=== PATIENT | female | born 1955 | race African-American/Black ===

== ENCOUNTER 2019-04-06 10:51 | Emergency (ER) | payer MEDICARE, OTHER ==
[~2019-04-06] VITALS: Ht 160 cm; Wt 86.6 kg
[~2019-04-06 10:51] MED LIST: CARVEDILOL25 MG PO; CYMBALTA60 MG PO; EXFORGE HCT 101 EAC2 PO; ULTRAM50 MG PO
--- OUTSIDE RECORDS SUMMARY | 2019-04-06 10:53 | XMS REPORT | Summary of Care ---
Author Author HAIDER Hardy, MARIAH Santos Unknown Address Unknown Phone Unavailable Care Team Providers Care Lap Hand Tool Name Role Phone HAIDER Hardy, MARIAH Unavailable Unavailable BRIANA LESLIE, ABRAM TREJO Unavailable Unavailable NORM LESLIE, MANJULA Unavailable Unavailable Caroline LESLIE, González Unavailable Unavailable Unavailable Unavailable Functional Status Name Dates Details Functional status health issues are not documented Status: Name Dates Details Cognitive status health issues are not documented Status: Problems Name Dates Details Seronegative rheumatoid arthritis (714.0, M06.00) Status: Active Elevated sed rate (790.1, R70.0) Status: Active Elevated C-reactive protein (790.95, R79.82) Status: Active Polyarthritis of multiple sites (716.59, M13.0) Status: Active Medications Name Dates Details Carvedilol 25 MG Oral Tablet TAKE 1 TABLET TWICE DAILY. Active traMADol HCl - 50 MG Oral Tablet TAKE 1 TABLET EVERY 8 HOURS NEEDED. * Refills: 0 Active Losartan Potassium-HCTZ 100-25 MG Oral Tablet * Refills: 0 Active Atorvastatin Calcium 40 MG Oral Tablet * Refills: 0 Active Iron 246 (28 Fe) MG TABS * Refills: 0 Active ProAir HFA AERS * Refills: 0 Active DULoxetine HCl - 60 MG Oral Capsule Delayed Release Particles * Refills: 0 Active tiZANidine HCl - 4 MG Oral Capsule TAKE 1 CAPSULE TWICE DAILY * Refills: 0 Active Aspirin 81 MG TABS * Refills: 0 Active traMADol-Acetaminophen 37.5-325 MG Oral Tablet * Refills: 0 Active predniSONE 10 MG Oral Tablet * Refills: 0 Active Montelukast Sodium 10 MG Oral Tablet * Refills: 0 Active Flonase Allergy Relief SUSP * Refills: 0 Active Allergies and Adverse Reactions Name Dates Details erythromycin (Allergy) Status: Active Procedures Procedure Dates Details [QLH] C-REACTIVE PROTEIN Date: 13-Mar-2019 [QLH] SED RATE BY MODIFIED WESTERGREN Date: 13-Mar-2019 [QL] PROTEIN, TOTAL AND PROTEIN ELECTROPHORESIS, URINE Date: 13-Mar-2019 [QL] IMMUNOFIXATION, SERUM Date: 13-Mar-2019 [QLH] RHEUMATOID FACTOR Date: 22-Mar-2019 [QH] CYCLIC CITRULLINATED PEPTIDE (CCP) AB (IGG) Date: 22-Mar-2019 Immunization Name Dates Details Immunizations not documented Social History Name Dates Details Unknown if ever smoked Vital Signs Date Test Result Details [id number] BP Systolic 136 mm[Hg] Status: Comments: Location: LUE; Position: Sitting BP Diastolic 87 mm[Hg] Status: Comments: Location: LUE; Position: Sitting Height 62 in Status: Weight 199.375 lb Status: Body Mass Index Calculated 36.47 kg/m2 Status: Body Surface Area Calculated 1.91 m2 Status: Heart Rate 73 /min Status: Comments: Location: L Carotid; Results Date Description Value Details [id number] XRAY Hand AP lateral oblique Bilateral 61749 Hand AP lateral oblique Bilateral SEE NOTES Comments: EXAM: XR BILATERAL HAND 4 VIEWSDATE: 03/13/2019 13:08 CDTINDICATION: - M13.0 Polyarthritis, unspecifiedCOMPARISON: NoneTECHNIQUE: PANellie, lateral and oblique radiographs of the bilateralhands.FINDINGS: Bone mineral density appears normal. Small osteophytes without jointspace narrowing or erosion scattered throughout the interphalangeal joints andmetacarpophalangeal joints. No joint space narr owing, erosions, or cysts of thewrists.Chondrocalcinosis of the right second MCP, bilateral third MCP, and rightradiocarpal joints.IMPRESSION: 1. Mild osteoarthrosis scattered throughout the interphalangeal andmetacarpophalangeal joints.2. Chondrocalcinosis of the bilateral MCP and right radiocarpal joints.--Read by: Diomedes Schwartz MDDictated Date/time: 03/13/19 13:29Electronically Signed by: Diomedes Schwartz MD 03/13/1913:31FINAL REPORT [id number] XRAY Foot 3 views Bilateral 75930 Foot 3 views Bilateral SEE NOTES Comments: EXAM: XR BILATERAL FOOT 3 VIEWSDATE: 03/13/2019 13:07 CDTINDICATION: M13.0 Polyarthritis, unspecifiedCOMPARISON: None.TECHNIQUE: AP, lateral and oblique radiographs of the bilateral feetF INDINGS: No acute fracture or malalignment is identified.No soft tissue abnormality is identified.IMPRESSION: No acute abnormality.--This report was dictated by a Early Childhood Lead Teacher/Fellow/Physician Wash Driller. Hilda personallyreviewed the images as well as the interpretation and agree with the findings.Read by: Juana Nicholas MD Resident/Fellow/PhysicianAssistant: Juana Nicholas MDDictated Date/time: 03/13/19 13:30Electronically Signed by: Tarun Granados MD 03/13/1918:56FINAL REPORT [id number] [QL] PROTEIN, TOTAL AND PROTEIN ELECTROPHORESIS, RANDOM URINE Comments: NONE DETECTEDREPORT COMMENT:MULTIPLE COLLECTION TIMES FOR SAME TEST TYPE. CREATININE, RANDOM URINE 155 mg/dl (Normal) Range: 20-275 PROTEIN/CREATININE RATIO 77 {MG/G_CREAT} (Normal) Range: 21-161 PROTEIN, TOTAL, RANDOM UR 12 mg/dl (Normal) Range: 5-24 ALBUMIN 100 % [id number] % Comments: NONE DETECTED [id number] % Comments: NONE DETECTED BETA GLOBULINS % Comments: NONE DETECTED GAMMA GLOBULINS % Comments: NONE DETECTED INTERPRETATION Comments: Faint albumin band detected on urine protein electrophoresis.No abnormal protein bands (Bence-Nguyen proteinuria) detected. [id number] [QL] CMP W/EGFR GLUCOSE 102 mg/dl (Normal) Range: 65-139 Comments: Non-fasting reference interval UREA NITROGEN (BUN) 23 mg/dl (Normal) Range: 7-25 CREATININE 1.20 mg/dl (Above high threshold) Range: 0.50-0.99 Comments: For patients >49 years of age, the reference limitfor Creatinine is approximately 13% higher for peopleidentified as -[place]. eGFR NON- 49 {ML/MIN/1.7} (Below low threshold) Range: > OR=60 eGFR 56 {ML/MIN/1.7} (Below low threshold) Range: > OR=60 BUN/CREATININE RATIO 19 {CALC} (Normal) Range: 6-22 SODIUM 144 mmol/L (Normal) Range: 135-146 POTASSIUM 3.7 mmol/L (Normal) Range: 3.5-5.3 CHLORIDE 104 mmol/L (Normal) Range: 98-110 CARBON DIOXIDE 31 mmol/L (Normal) Range: 20-32 CALCIUM 9.3 mg/dl (Normal) Range: 8.6-10.4 PROTEIN, TOTAL 7.3 g/dl (Normal) Range: 6.1-8.1 ALBUMIN 4.0 g/dl (Normal) Range: 3.6-5.1 GLOBULIN 3.3 {G/DL__CALC} (Normal) Range: 1.9-3.7 ALBUMIN/GLOBULIN RATIO 1.2 {CALC} (Normal) Range: 1.0-2.5 BILIRUBIN, TOTAL 0.8 mg/dl (Normal) Range: 0.2-1.2 ALKALINE PHSPHATASE 78 u/l (Normal) Range: 33-130 AST 15 u/l (Normal) Range: 10-35 ALT 12 u/l (Normal) Range: 6-29 [id number] [[facility]] HLA-B27, DNA TYPING HLA-B27 Negative Range: Negative RESULTS REVIEWED BY: see note Comments: Lenny Joyner, Ph.D.,FACMGDirector, Molecular Genetics The B27 allele group of the HLA-B locus is presentin 2 to 9% of the general population. About 20% ofHLA-B27 carriers develop autoimmune disordersincluding Ankylosing Spondylitis (), ReactiveArthritis, Psoriatic Arthritis, UndifferentiatedOligoarthritis, Uveitis, or Inflammatory BowelDisease. The highest association is with , whereapproximately 95% of patients are HLA-B27 positive.Genetic counseling as needed. Typing performed by PCR and hybridization with sequencespecific oligonucleotide probes (SSO) using theA-cleared LABType(R) SSO Kit. [id number] [QL] SED RATE BY MODIFIED WESTERGREN SED RATE BY MODIFIED WESTERGREN 65 mm/h (Above high threshold) Range: < OR=30 [id number] [[facility]] CBC (INCLUDES DIFF/PLT) WHITE BLOOD CELL COUNT 6.2 {Thousand/u} (Normal) Range: 3.8-10.8 RED BLOOD CELL COUNT 4.20 {Million/uL} (Normal) Range: 3.80-5.10 HEMAGLOBIN 10.1 g/dl (Below low threshold) Range: 11.7-15.5 HEMATOCRIT 32.1 % (Below low threshold) Range: 35.0-45.0 MCV 76.4 fL (Below low threshold) Range: 80.0-100.0 MCH 24.0 pg (Below low threshold) Range: 27.0-33.0 MCHC 31.5 g/dl (Below low threshold) Range: 32.0-36.0 RDW 14.8 % (Normal) Range: 11.0-15.0 PLATELET COUNT 299 {Thousand/u} (Normal) Range: 140-400 MPV 10.8 fL (Normal) Range: 7.5-12.5 ABSOLUTE NEUTROPHILS 4042 {cells/uL} (Normal) Range: 8550-1007 ABSOLUTE LYMPHOCYTES 1562 {cells/uL} (Normal) Range: 850-3900 ABSOLUTE MONOCYTES 502 {cells/uL} (Normal) Range: 200-950 ABSOLUTE EOSINOPHILS 81 {cells/uL} (Normal) Range: 15-500 ABSOLUTE BASOPHILS 12 {cells/uL} (Normal) Range: 0-200 NEUTROPHILS 65.2 % (Normal) LYMPHOCYTES 25.2 % (Normal) MONOCYTES 8.1 % (Normal) EOSINOPHILS 1.3 % (Normal) BASOPHILS 0.2 % (Normal) [id number] [QL] IMMUNOFIXATION, SERUM INTERPRETATION Comments: Normal pattern. No monoclonal proteins detected. [id number] [QLH] C-REACTIVE PROTEIN Comments: REPORT COMMENT:FASTING:NO C-REACTIVE PROTEIN 14.8 mg/L (Above high threshold) Range: <8.0 Plan of Care Name Dates Details Planned Observations Planned Goals not documented Planned Encounters Appointment; MARIAH MALONEY M.D. On: 19-Jun-2019 13:00 Interventions Provided Labs/Procedures/Imaging* [QH] CYCLIC CITRULLINATED PEPTIDE (CCP) AB (IGG); To Be Done: 22 Mar 2019 * [QLH] RHEUMATOID FACTOR; To Be Done: 22 Mar 2019 Discussion/Summary* I have reviewed your labs. Inflammatory markers are elevated -- and I have ordered a rheumatoid factor and CCP. Labs did show anemia, and an elevated creatinine (that usually goes along with kidney function). I do not have baseline labs. We will have to monitor that, and I would recommend you share these results with your primary care doctor as well. Thanks Instructions Name Dates Details Instructions not documented Encounters Appointment; MARIAH MALONEY M.D. Encounter Diagnosis: Problem not documented On: 13-Mar-2019 11:00
[2019-04-06] MEDS ORDERED: CYCLOBENZAPRINE HCL 10 MG TAB PO ONE (11:15)
[2019-04-06] MEDS ORDERED: PREDNISONE 20 MG TAB PO ONE (11:15)
[2019-04-06] MEDS ORDERED: HYDROCODONE/APAP 5MG-325MG TAB PO ONE (11:15)
[2019-04-06] MEDS ORDERED: KETOROLAC TROMETHAMINE 10 MG TAB PO ONE (11:15)
== END 2019-04-06 11:31 | disposition home or self-care (01) ==
LOC: ER 10:51
DX: M54.42 Lumbago with sciatica, left side (principal); K21.9 Gastro-esophageal reflux disease without esophagitis; M79.7 Fibromyalgia
CPT/HCPCS: 99282; J7512

== ENCOUNTER 2019-12-09 06:25 | Emergency (ER) | payer MEDICARE ==
[~2019-12-09] VITALS: Ht 160 cm; Wt 92.1 kg
[2019-12-09 06:57] LABS: CLARITY,URINE CLOUDY (CLEAR); COLOR,URINE YELLOW (YELLOW)
[2019-12-09 06:58] LABS: BILIRUBIN,URINE NEGATIVE (NEGATIVE); KETONES,URINE NEGATIVE (NEGATIVE); LEUKOCYTE ESTERASE ,URINE NEGATIVE (NEGATIVE); NITRITE,URINE NEGATIVE (NEGATIVE); PROTEIN,URINE DIPSTICK NEGATIVE (NEGATIVE); URINE UROBILINOGEN 1 mg/dL (0.2 - 1)
--- NOTE | 2019-12-09 07:01 | NUR ---
Report to NORMAN Steele
[2019-12-09] MEDS ORDERED: KETOROLAC TROMETHAMINE 30 MG/ML VIAL IM ONE (07:05)
[2019-12-09] MEDS ORDERED: MORPHINE SULFATE INJ 4 MG/ML INJ 1ML IM ONE (07:05)
[2019-12-09] MEDS ORDERED: PREDNISONE 20 MG TAB PO ONE (07:05)
[2019-12-09 07:25] LABS: BACTERIA,URINE MANY /HPF; EPITHELIAL CELLS,URINE MANY /LPF; RBC,URINE 0-5 /HPF (0-5); WBC,URINE (MAN) 0-5 /HPF (0-5)
[2019-12-09 08:04] VITALS: BP 163/94
--- NOTE | 2019-12-09 08:49 | Diagnostic Imaging Report ---
EXAM: CT Abdomen and Pelvis WITHOUT contrast INDICATION: ^R flank pain ^[id number] ^[id number] COMPARISON: None. TECHNIQUE: Abdomen and pelvis were scanned utilizing a multidetector helical scanner from the lung base to the pubic symphysis without administration of IV contrast. Absence of intravenous contrast decreases sensitivity for detection of focal lesions and vascular pathology. Coronal and sagittal reformations were obtained. Routine protocol was performed. IV CONTRAST: None. ORAL CONTRAST: Water RADIATION DOSE: Total DLP: 661.2 mGy*cm Estimated effective dose: (DLP x 0.015 x size factor) mSv COMPLICATIONS: None FINDINGS: LINES and TUBES: None. LOWER THORAX: Unremarkable HEPATOBILIARY: No focal hepatic lesions. No biliary ductal dilation. GALLBLADDER: The gallbladder is not visualized. SPLEEN: No splenomegaly. PANCREAS: No focal masses or ductal dilatation. ADRENALS: No adrenal nodules KIDNEYS/URETERS: No hydronephrosis. 7.6 x 6.8 cm water attenuation cysts in the right kidney. 1.8 cm low-attenuation cyst in the upper pole of the left kidney. No stones. GI TRACT: Surgical clip adjacent to the anterior wall of the distal gastric body. No abnormal distention, wall thickening, or evidence of bowel obstruction. Mild scattered diverticulosis in the sigmoid colon within the lower pelvis and left lower quadrant with minimal surrounding fat stranding. Appendix is normal. PELVIC ORGANS/BLADDER: Unremarkable. LYMPH NODES: No lymphadenopathy. VESSELS: Unremarkable. PERITONEUM / RETROPERITONEUM: No free air or fluid. BONES: Status post right hip replacement. Mild multilevel degenerative changes of the lumbar spine. SOFT TISSUES: Moderate size fat-containing left periumbilical hernia measuring up to 4.4 cm on series 3, image 108. IMPRESSION: 1. No calcified stones in the collecting system, bilaterally. Large (up to 7.6 cm) right and small left low-attenuation cysts. No hydronephrosis. 2. Scattered diverticulosis of the sigmoid colon with mild surrounding fat stranding of the level of the lower pelvis at midline and left lower quadrant may reflect early diverticulitis. Signed by: Dr. Genie Ceballos M.D. on 12/09/2019 8:46 AM
== END 2019-12-09 09:04 | disposition home or self-care (01) ==
LOC: ER 06:38
DX: S39.012A Strain of muscle, fascia and tendon of lower back, initial encounter (principal); X50.1XXA Overexertion from prolonged static or awkward postures, initial encounter; Y92.008 Other place in unspecified non-institutional (private) residence as the place of occurrence of the external cause; I10 Essential (primary) hypertension; E78.5 Hyperlipidemia, unspecified; Z85.028 Personal history of other malignant neoplasm of stomach; Z96.641 Presence of right artificial hip joint
CPT/HCPCS: 74176; 81001; 99283; J1885; J2270; J7512